=== PATIENT | male | born 1990 | race Caucasian/White ===

== ENCOUNTER 2023-05-03 13:33 | Outpatient (RCR) | payer OTHER, SELFPAY | END 2023-05-28 23:59 | disposition home or self-care (01) | LOC: SPT 13:33 | PROVIDERS: PCP Family Medicine; Visit Provider Family Medicine | DX: M19.09 Primary osteoarthritis, other specified site (principal) | CPT/HCPCS: 97110; 97161 ==

== ENCOUNTER 2023-05-29 06:00 | Outpatient (RCR) | payer OTHER, SELFPAY | END 2023-06-28 23:59 | disposition home or self-care (01) | LOC: SPT 06:00 | PROVIDERS: PCP Family Medicine; Visit Provider Family Medicine | DX: M19.09 Primary osteoarthritis, other specified site (principal); M17.0 Bilateral primary osteoarthritis of knee | CPT/HCPCS: 97110 ==

== ENCOUNTER 2025-06-06 06:52 | Outpatient (CLI) | payer OTHER, SELFPAY ==
--- NOTE | 2025-06-06 07:15 | MR_ITS ---
WS: [id number] MRI RIGHT LOWER EXTREMITY WITHOUT CONTRAST. COMPARISON: None Multiplanar, multisequence imaging is performed without contrast. History: Soft tissue mass RIGHT lower extremity. The area is marked. No fractures or marrow edema. In the area of the marker there is no underlying soft tissue mass or edema. The muscle bundles and the fascia are normal. No signal changes. No underlying vessel or mass identified. MR/MR lower leg RT wo con* [id number] IMPRESSION: Negative noncontrast MRI RIGHT lower extremity.
== END 2025-06-06 06:53 | disposition home or self-care (01) ==
LOC: RAD 06:53
PROVIDERS: PCP Family Medicine; Visit Provider Nurse Practitioner Family
DX: R22.41 Localized swelling, mass and lump, right lower limb (principal)
CPT/HCPCS: 73718